=== PATIENT | male | born 1970 | race Two or more races ===

== ENCOUNTER 2019-02-26 15:32 | Outpatient (CLI) | payer OTHER ==
[~2019-02-26 15:32] MED LIST: FLEXERIL10 MG PO; NABUMETONE750 MG PO; NEURONTIN300 MG
== END 2019-02-26 15:57 | disposition home or self-care (01) ==
LOC: RAD 15:32
DX: M25.561 Pain in right knee (principal); M25.562 Pain in left knee

== ENCOUNTER 2019-10-16 23:32 | Emergency (ER) | payer OTHER ==
[~2019-10-16] VITALS: Ht 193 cm; Wt 99.8 kg
[2019-10-17] MEDS ORDERED: PEPCID40 MG PO (05:50)
[2019-10-17] MEDS ORDERED: ZOFRAN8 MG PO (05:50)
[2019-10-17] MEDS ORDERED: LEVSIN/SL0.125 MG SL (05:50)
== END 2019-10-17 05:56 ==
LOC: ER 23:32
DX: K29.60 Other gastritis without bleeding (principal)

== ENCOUNTER 2020-04-14 02:52 | Emergency (ER) | payer OTHER ==
[~2020-04-14] VITALS: Ht 193 cm; Wt 99.8 kg
[~2020-04-14 02:52] MED LIST changes: +LEVSIN/SL0.125 MG SL; +PEPCID40 MG PO; +ZOFRAN8 MG PO
[2020-04-14] MEDS ORDERED: PEPCID40 MG PO (06:07)
[2020-04-14] MEDS ORDERED: MOBIC15 MG PO (06:07)
== END 2020-04-14 06:40 | disposition home or self-care (01) ==
LOC: ER 02:52 → CPU-OBS 03:02 → ER 03:02
DX: R07.1 Chest pain on breathing (principal); K21.9 Gastro-esophageal reflux disease without esophagitis
CPT/HCPCS: G0378; G0379; 93005

== ENCOUNTER → 2024-12-09 | Emergency (ER) | payer OTHER ==
[~2024-12-09] VITALS: Ht 193 cm; Wt 83.9 kg
[~2024-12-09] MED LIST changes: +IBU600 MG PO; +LABETALOL HCL 100 MG/20 ML ML ONE; +LABETALOL HCL 20MG/4ML SYRINGE IV ONE; +MOBIC15 MG PO; +SYNTHROID100 MCG
== END | disposition home or self-care (01) ==
LOC: ER 15:59
DX: R03.0 Elevated blood-pressure reading, without diagnosis of hypertension (principal); E03.9 Hypothyroidism, unspecified